=== PATIENT | female | born 2000 | race Caucasian/White ===

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

== ENCOUNTER 2020-09-18 08:18 | Day surgery (SDC) | payer OTHER ==
[~2020-09-18] VITALS: Ht 175.3 cm; Wt 147.0 kg
[~2020-09-18 08:18] MED LIST changes: +FERR325T3 PO; +NS 1,000 ML IV ONE
[2020-09-18] MEDS ORDERED: propofoL 200 MG/20 ML VIAL As Ordered ONE (10:04)
--- NOTE | 2020-09-18 10:04 | ROOR ---
Patient Name: Ezequiel Armas Procedure Date: 09/18/2020 9:46 AM Date of : 2000 Age: 20 Room: [facility] Gender: Female Note Status: Finalized Procedure: Total Colonoscopy to Cecum + ileoscopy + Bx Indications: Clinically significant diarrhea of unexplained origin, Generalized abdominal pain, Change in bowel habits Providers: Clifford Zhou MD Referring MD: CUCA THURMAN MD Requesting Provider: Medicines: Monitored Anesthesia Care Complications: No immediate complications. Procedure: Pre-Anesthesia Assessment: - The heart rate, respiratory rate, oxygen saturations, blood pressure, adequacy of pulmonary ventilation, and response to care were monitored throughout the procedure. The Colonoscope was introduced through the anus and advanced to the terminal ileum, with identification of the appendiceal orifice and IC valve. The colonoscopy was performed without difficulty. The patient tolerated the procedure well. The quality of the bowel preparation was excellent. Findings: The perianal and digital rectal examinations were normal. Non-bleeding internal hemorrhoids were found during retroflexion. The hemorrhoids were small and Grade I (internal hemorrhoids that do not prolapse). No other significant abnormalities were identified in a careful examination of the remainder of the colon. The terminal ileum appeared normal. Biopsies for histology were taken with a cold forceps from the ascending colon, transverse colon, descending colon and rectosigmoid colon for evaluation of microscopic colitis. The exam was otherwise without abnormality on direct and retroflexion views. Impression: - Non-bleeding internal hemorrhoids. - The examined portion of the ileum was normal. - The examination was otherwise normal on direct and retroflexion views. - Biopsies were taken with a cold forceps from the ascending colon, transverse colon, descending colon and rectosigmoid colon for evaluation of microscopic colitis. - The exam was otherwise normal to the cecum. Recommendation: - Patient has a contact number available for emergencies. The signs and symptoms of potential delayed complications were discussed with the patient. Return to normal activities tomorrow. Written discharge instructions were provided to the patient. - High fiber diet. - Discharge patient to home. - Continue present medications. - Await pathology results. - Telephone GI clinic for pathology results in 1 week. - Repeat colonoscopy at age 50 for screening purposes. - Return to referring physician. - The findings and recommendations were discussed with the patient. Procedure Code(s): --- Professional --- 11455, Colonoscopy, flexible; with biopsy, single or multiple Diagnosis Code(s): --- Professional --- K64.0, First degree hemorrhoids R19.7, Diarrhea, unspecified R10.84, Generalized abdominal pain R19.4, Change in bowel habit CPT copyright 2019 [employer]. All rights reserved. The codes documented in this report are preliminary and upon literacy education professor review may be revised to meet current compliance requirements. Clifford Zhou MD Clifford Zhou MD 09/18/2020 10:04:44 AM Electronically signed by Clifford Zhou MD Number of Addenda: 0 Note Initiated On: 09/18/2020 9:46 AM Estimated Blood Loss: Estimated blood loss: none.
[2020-09-18] MEDS ORDERED: LIDOCAINE 2% 100MG/5ML SDV (FOR ANES.) As Ordered ONE (10:06)
[2020-09-18 10:30] VITALS: BP 141/86
== END 2020-09-18 10:31 | disposition home or self-care (01) ==
LOC: M OPP 08:18
PROVIDERS: ATTEND Internal Medicine Gastroenterology
DX: K64.8 Other hemorrhoids (principal); R19.7 Diarrhea, unspecified; R10.84 Generalized abdominal pain; Z88.0 Allergy status to penicillin

== ENCOUNTER 2021-03-07 11:03 | Observation (INO) | payer OTHER ==
[~2021-03-07] VITALS: Ht 175.3 cm; Wt 144.2 kg
[~2021-03-07 11:03] MED LIST changes: -NS 1,000 ML IV ONE
[2021-03-07 12:16] LABS: BASO % 0.2 % (0.0-1.0); EOS # 0.2 10^3/uL (0.0-0.5); EOS % 1.5 % (0.0-3.0); HEMATOCRIT 36.4 % (36.0-47.0); HEMOGLOBIN 11.9 g/dl (12.0-15.5); LYMPH # 3.2 10^3/uL (1.5-5.0); LYMPH % 25.6 % (24.0-44.0); MEAN CORPUSCULAR HEMOGLOBIN 25.6 pg (27.0-33.0); MEAN CORPUSCULAR HGB CONC 32.7 g/dl (32.0-36.5); MEAN CORPUSCULAR VOLUME 78.4 fl (80.0-96.0); MONO # 0.5 10^3/uL (0.0-0.8); NEUTROPHILS # 8.5 10^3/uL (1.5-8.5); NEUTROPHILS % 68.4 % (36.0-66.0); PLATELET COUNT, AUTOMATED 337 10^3/uL (150-450); RED BLOOD COUNT 4.64 10^6/uL (4.00-5.40); WHITE BLOOD COUNT 12.4 10^3/uL (4.0-10.0)
[2021-03-07 12:52] LABS: BLOOD UREA NITROGEN 10 MG/DL (7-18); CARBON DIOXIDE LEVEL 20 MEQ/L (21-32); CHLORIDE LEVEL 104 MEQ/L (98-107); CREATININE FOR GFR 0.78 MG/DL (0.55-1.30); GLUCOSE, FASTING 93 MG/DL (70-100); POTASSIUM SERUM 3.9 MEQ/L (3.5-5.1); SODIUM LEVEL 134 MEQ/L (136-145)
[2021-03-07] MEDS ORDERED: NS 1,000 ML IV ONE (13:10)
--- NOTE | 2021-03-07 13:28 | REP ---
INDICATION: miscarriage actively started misoprostol last night COMPARISON: None. TECHNIQUE: Grayscale and color B-mode transabdominal 1st trimester obstetrical ultrasound. FINDINGS: Enlarged heterogeneous anteverted uterus measures 15.1 x 6.6 x 7.0 cm. The endometrial complex measures 25.5 mm thickness and echogenic material within the endocervical canal likely represents hemorrhagic debris. No definable gestational sac. Ovaries are not visualized. No pelvic free fluid. IMPRESSION: Heterogeneous presumed hemorrhagic debris in the endocervical canal without definable intrauterine . Findings likely represent spontaneous in progress. Correlation with serial HCG levels recommended. <Electronically signed by Luigi Sherman > 03/07/21 [id number]
[2021-03-07 13:52] LABS: HCG, SERUM QUANTITATIVE 15715 MIU/ML
[2021-03-07] MEDS ORDERED: MISO200T56 PO (14:03)
[2021-03-07] MEDS ORDERED: IBUP-1022 PO (14:03)
[2021-03-07] MEDS ORDERED: OXYC-1 PO (14:03)
[2021-03-07] MEDS ORDERED: ONDA4TAB6 PO (14:03)
[2021-03-07] MEDS ORDERED: ACET1TAB55 PO (14:03)
--- NOTE | 2021-03-07 14:13 | REP ---
INDICATION: stat per ob at bedside, active miscarrage COMPARISON: None. TECHNIQUE: Transvaginal 1st trimester obstetrical ultrasound. FINDINGS: Heterogeneous enlarged anteverted uterus measures 11.3 x 5.9 x 7.4 cm. The endometrial complex measures 24.6 mm thickness without discernible vascularity. Previously noted presumed hemorrhagic debris in the endocervical canal is no longer visible. Ovaries are not visualized. IMPRESSION: Heterogeneous anteverted uterus as described above. Previously noted hemorrhagic debris in the endocervical canal no longer visible. <Electronically signed by Luigi Sherman > 03/07/21 [id number]
[2021-03-07] MEDS ORDERED: OXYC-517 PO (14:39)
[2021-03-07] MEDS ORDERED: IBUP1TAB7 PO (14:39)
[2021-03-07] MEDS ORDERED: HOME MED LIST COMPLETE! XX SCH (14:40)
[2021-03-07] MEDS ORDERED: dexameTHASONE 4 MG/ML 1ML VIAL (J1100 PER 1MG) As Ordered ONE (15:46)
[2021-03-07] MEDS ORDERED: propofoL 200 MG/20 ML VIAL As Ordered ONE (15:46)
[2021-03-07] MEDS ORDERED: KETOROLAC 60MG 2ML VIAL As Ordered ONE (15:46)
[2021-03-07] MEDS ORDERED: ONDANSETRON 4MG/2ML VIAL As Ordered ONE (15:46)
[2021-03-07] MEDS ORDERED: MIDAZOLAM INJ 2MG/2ML VIAL (J2250 PER 1MG) As Ordered ONE (15:46)
[2021-03-07] MEDS ORDERED: fentaNYL 100 MCG/2 ML INJECTION (J3010) As Ordered ONE (15:46)
[2021-03-07] MEDS ORDERED: LIDOCAINE 2% 100MG/5ML SDV (FOR ANES.) As Ordered ONE (15:46)
[2021-03-07] MEDS ORDERED: DOXYCYCLINE HYCLATE 100MG/10ML VIAL As Ordered ONE (16:20)
[2021-03-07] MEDS ORDERED: LEVONORGESTREL 52MG (MIRENA) IUD As Ordered ONE (16:20)
[2021-03-07] MEDS ORDERED: ACETAMINOPHEN 1000MG 100ML IV BTL (OFIRMEV) (J0131 PER 10MG) As Ordered ONE (16:26)
[2021-03-07] MEDS ORDERED: METOCLOPRAMIDE INJ 10MG/2ML VIAL (J2765 PER 1) As Ordered ONE (16:48)
[2021-03-07] MEDS ORDERED: METHYLERGONOVINE MALEATE 0.2 MG/ML VIAL (J2210) As Ordered ONE (16:57)
[2021-03-07] MEDS ORDERED: ONDANSETRON 4MG/2ML VIAL IV PRN (17:35)
[2021-03-07] MEDS ORDERED: LR 1,000 ML IV SCH (17:35)
[2021-03-07] MEDS ORDERED: oxyCODONE 5MG TAB PO PRN (17:35)
[2021-03-07] MEDS ORDERED: HYDROMORPHONE HCL 0.5 MG/ 0.5 ML SYRINGE (J1170 PER 1) IV PRN (17:35)
[2021-03-07] MEDS ORDERED: fentaNYL 100 MCG/2 ML INJECTION (J3010) IV PRN (17:35)
--- NOTE | 2021-03-07 18:01 | ROOPDOC ---
[facility] Report Of Operation Report of Operation DATE OF PROCEDURE: 03/07/21 PREPROCEDURE DIAGNOSES: retained products of conception, missed POSTPROCEDURE DIAGNOSES: retained products of conception, missed , uterine hemorrhage PROCEDURE PERFORMED: ultrasound guided dilation and curettage, mirena IUD placement SURGEON: Amando Hicks DO ACADEMIC MANAGER: n/a ANESTHESIA: LMA ESTIMATED BLOOD LOSS: Approximately 1000 mL. COMPLICATIONS: uterine atony / hemorrhage REMARKS: none FINDINGS: after removal of visible cervical products of conception in the ER endometrial stripe remained 2.5cm and vaginal bleeding, although slower, persisted. Decision made to proceed with D+C. 12mm curette passed with good tissue return and curette had 360 deg cry but bleeding remained brisk. The bleeding slowed with bimanual massage, methergine, and cytotec. Transabdominal ultrasound revealed a thin endometrial stripe. The patient compensated well and was stable on transfer. SPECIMENS REMOVED: Products of conception. PROCEDURE NOTE: Ulttrasound in the emergency room revealed a 2.5cm endometrial stripe but on exam there were visible products of conception in the cervix. The patient reported symptoms of anemia, but she had an appropirate CBC and her vital signs were normal, Attempt was made for removal of the cervical products of conception given her heavy bleeding. Removal was successful and the bleeding slowed, repeat ultrasound revealed an unchanged appearance of the upper uterus. Given the persistent bleeding and unchanged uterine appearance decision was made to proceed with D+C. The risks, benefits and alternatives of the procedure were discussed and written consent obtained. She was taken to the OR and given doxycycline and tylenol pre-operative. She underwent anesthesia and was positioned in lithotomy with her arms out. The vagina and perineum were prepped and draped in a sterile fashion. A final time out was performed. The bladder was drained. A speculum was placed in the vagina and the anterior lip of the cervix grasped with a single tooth tenaculum. The cervix was visually dilated, a 12cm curette was introduced to the fundus and removed. It was then attached to suction and tested to the green zone. The curette was passed with good tissue return. A curette was used to palpate the uterine smalls and cry was appreciated 360 deg. Uterine bleeding although remained brisk. Methergine IM and cytotec FL were administered, uterine massage was performed. The uterus firmed and bleeding became scant. Transabdominal ultrasound revealed a thin endometrial stripe. A mirena IUD was then placed via the manufacturers instructions and the sgtrings cut to 4cm. Placement was confirmed via ultrasound. The tenaculum was removed and the puncture sites were hemostatic. The speculum was removed. The patient tolerated the procedure well. The sponge, lap, and needle counts were correct. She was transferred to recovery in stable condition. AMANDO HICKS DO Mar 07, 2021 18:01
[2021-03-07] MEDS: LR 1,000 ML IV SCH (18:35)
[2021-03-07 20:00] VITALS: BP 130/89
[2021-03-07] MEDS: DOCUSATE SODIUM 100MG CAPSULE PO SCH (20:58)
[2021-03-07 21:00] LABS: HEMATOCRIT 29.4 % (36.0-47.0); MEAN CORPUSCULAR HEMOGLOBIN 25.6 pg (27.0-33.0); MEAN CORPUSCULAR HGB CONC 32.3 g/dl (32.0-36.5); MEAN CORPUSCULAR VOLUME 79.2 fl (80.0-96.0); PLATELET COUNT, AUTOMATED 300 10^3/uL (150-450); RED BLOOD COUNT 3.71 10^6/uL (4.00-5.40); WHITE BLOOD COUNT 17.2 10^3/uL (4.0-10.0)
[2021-03-07 21:02] LABS: HEMOGLOBIN 9.5 g/dl (12.0-15.5)
[2021-03-08 00:01] VITALS: BP 118/75
[2021-03-08] MEDS: LR 1,000 ML IV SCH ×2 (00:48→09:40)
[2021-03-08 00:52] LABS: HEMATOCRIT 27.7 % (36.0-47.0); MEAN CORPUSCULAR HEMOGLOBIN 25.8 pg (27.0-33.0); MEAN CORPUSCULAR HGB CONC 32.5 g/dl (32.0-36.5); MEAN CORPUSCULAR VOLUME 79.4 fl (80.0-96.0); PLATELET COUNT, AUTOMATED 310 10^3/uL (150-450); RED BLOOD COUNT 3.49 10^6/uL (4.00-5.40); WHITE BLOOD COUNT 13.1 10^3/uL (4.0-10.0)
[2021-03-08 04:00] VITALS: BP 136/68
[2021-03-08 04:11] VITALS: BP 127/71
--- NOTE | 2021-03-08 07:00 | IPNPDOC ---
Text Note Date of Service The patient was seen on 03/08/21. NOTE Ms. Armas is a 20yo F that is POD 1 s/p suction D+C and mirena IUD placement for retained products of conception with persistent bleeding after cytotec administration for a missed c/b uterine atony with an EBL of 1000cc + per per report overflowing approx 9 maxi pads prior to coming to the ER. In the OR she received cytotec 1000mcg MI and Methergine IM. A few hours after her surgery she had a near syncopal episode while ambulating with an RN to the bathroom. She reports that she had a wave of nausea and still felt under the influence of the anesthetic, her vital signs were normal. A 500cc bolus was administered and a STAT CBC ordered with Hbg 9.5. After recovering she felt significantly better. A 4h repeat CBC had a hCG of 9.0. This morning she reports feeling "so much better." She denied n/v/d, cp, sob, sr, visual changes, abd pain, f/c, heavy vb, dc, urinary sx, weakness, dizziness, light headedness. She is tolerating PO, ambulating, urinating, and passing flatus without issue. She desires to go home. EXAM AAOx3, NAD no increased WOB non-tachycardic abd is obese, soft, non-tender LE non-tender normal affect and insight Ms. Armas is a 20yo F that is POD 1 s/p suction D+C and mirena IUD placement for retained products of conception with persistent bleeding after cytotec administration for a missed c/b uterine atony with an EBL of 1000cc + per per report overflowing approx 9 maxi pads prior to coming to the ER. In the OR she received cytotec 1000mcg MI and Methergine IM. A few hours after her surgery she had a near syncopal episode while ambulating with an RN to the bathroom. She reports that she had a wave of nausea and still felt under the influence of the anesthetic, her vital signs were normal. A 500cc bolus was administered and a STAT CBC ordered with Hbg 9.5. After recovering she felt significantly better. A 4h repeat CBC had a hCG of 9.0. This morning her vital signs remain normal. She has no symptoms of anemia and her Hbg has been stable. She is meeting all post-operative goals and desires to go home. PLAN - discharge to home after AM CBC results if stable - patient has post-op medications already from her initial SAB treatment - educated on return precautions (heavy bleeding, fever, significant pain, other concerning symptoms) - educated on string check in 1wk then monthly thereafter - follow up in clinic in 2 weeks Luisito La, I+O Luisito COURTNEY I+O Laboratory Tests 03/07/21 11:56 03/07/21 20:47 03/08/21 00:45 Vital Signs Date Time Temp Pulse Resp B/P (MAP) Pulse Ox O2 Delivery O2 Flow Rate FiO2 03/08/21 04:11 98.0 98 16 127/71 (89) 98 Room Air I&O- Last 24 Hours up to 6 AM 03/08/21 06:00 Intake Total 4000 ml Output Total 1100 ml Balance 2900 ml JOSE HICKS DO Mar 08, 2021 06:59
--- NOTE | 2021-03-08 07:03 | OBDS ---
[facility] Obstetrical Discharge Sum. Obstetrical Discharge Summary Date: Mar 08, 2021 A/P, Post Course List any complications Final diagnosis: missed , retained products of conception, uterine atony, hemorrhage Ms. Armas is a 20yo F that is post-operative day 1 after a suction D+C and mirena IUD placement for retained products of conception with persistent bleeding after cytotec administration for a missed c/b uterine atony with an EBL of 1000cc + per per report overflowing approx 9 maxi pads prior to coming to the ER. In the OR she received cytotec 1000mcg MA and Methergine IM. A few hours after her surgery she had a near syncopal episode while ambulating wit h an RN to the bathroom. She reports that she had a wave of nausea and still felt under the influence of the anesthetic, her vital signs were normal. A 500cc bolus was administered and a STAT CBC ordered with Hbg 9.5. After recovering she felt significantly better. A 4h repeat CBC had a hCG of 9.0. This morning her vital signs remain normal. She has no symptoms of anemia and her Hbg has been stable. She is meeting all post-operative goals and desires to go home. PLAN - discharge to home after AM CBC results if stable - patient has post-op medications already from her initial SAB treatment - educated on return precautions (heavy bleeding, fever, significant pain, other concerning symptoms) - educated on string check in 1wk then monthly thereafter - follow up in clinic in 2 weeks JOSE HICKS DO Mar 08, 2021 07:03
[2021-03-08] MEDS: DOCUSATE SODIUM 100MG CAPSULE PO SCH (09:00)
[2021-03-08 10:00] VITALS: BP 124/76
[2021-03-08 11:54] LABS: BASO % 0.2 % (0.0-1.0); EOS % 0.2 % (0.0-3.0); HEMATOCRIT 24.9 % (36.0-47.0); HEMOGLOBIN 8.2 g/dl (12.0-15.5); LYMPH # 2.6 10^3/uL (1.5-5.0); LYMPH % 22.3 % (24.0-44.0); MEAN CORPUSCULAR HEMOGLOBIN 25.7 pg (27.0-33.0); MEAN CORPUSCULAR HGB CONC 32.9 g/dl (32.0-36.5); MEAN CORPUSCULAR VOLUME 78.1 fl (80.0-96.0); MONO # 0.4 10^3/uL (0.0-0.8); MONO % 3.6 % (2.0-8.0); NEUTROPHILS # 8.6 10^3/uL (1.5-8.5); NEUTROPHILS % 73.1 % (36.0-66.0); PLATELET COUNT, AUTOMATED 328 10^3/uL (150-450); RED BLOOD COUNT 3.19 10^6/uL (4.00-5.40); WHITE BLOOD COUNT 11.8 10^3/uL (4.0-10.0)
[2021-03-08] MEDS ORDERED: IBUPROFEN 800 MG TAB PO SCH (22:00)
== END 2021-03-08 14:30 | disposition home or self-care (01) ==
LOC: M ED 11:03 → M SDC 14:23 → M MS5PR 14:24
PROVIDERS: ADMIT Obstetrics & Gynecology; ATTEND Obstetrics & Gynecology
DX: O73.1 Retained portions of placenta and membranes, without hemorrhage (principal); O02.1 Missed abortion; N99.61 Intraoperative hemorrhage and hematoma of a genitourinary system organ or structure complicating a genitourinary system procedure; Z30.430 Encounter for insertion of intrauterine contraceptive device; Z88.0 Allergy status to penicillin; Z79.899 Other long term (current) drug therapy; Z79.891 Long term (current) use of opiate analgesic
CPT/HCPCS: 36415; 58300; 59820; 76801; 76817; 80048; 84702; 85025; 85027; 86850; 86900; 86901; 86920; 88305; 96360; 96361; 99284; J0131; J1100; J2210; J2250; J2405; J2765; J3010; J7298; U0002

== ENCOUNTER 2021-03-09 11:07 | Emergency (ER) | payer OTHER ==
[~2021-03-09] VITALS: Ht 175.3 cm; Wt 145.4 kg
[2021-03-09] VITALS (7 sets, daily range): BP systolic 103–136; BP diastolic 49–67
[~2021-03-09 11:07] MED LIST changes: +ACET1TAB55 PO; +IBUP-1022 PO; +IBUP1TAB7 PO; +MISO200T56 PO; +ONDA4TAB6 PO; +OXYC-1 PO; +OXYC-517 PO
[2021-03-09 12:16] LABS: HEMATOCRIT 21.9 % (36.0-47.0); HEMOGLOBIN 7.1 g/dl (12.0-15.5); MEAN CORPUSCULAR HGB CONC 32.4 g/dl (32.0-36.5); MEAN CORPUSCULAR VOLUME 80.2 fl (80.0-96.0); PLATELET COUNT, AUTOMATED 279 10^3/uL (150-450); RED BLOOD COUNT 2.73 10^6/uL (4.00-5.40); WHITE BLOOD COUNT 9.2 10^3/uL (4.0-10.0)
[2021-03-09] MEDS ORDERED: MAALOX 30 ML SUSP *UDC PO ONE (15:00)
== END 2021-03-09 18:17 | disposition home or self-care (01) ==
LOC: M ED 11:07
DX: D64.9 Anemia, unspecified (principal); Z79.899 Other long term (current) drug therapy; Z79.891 Long term (current) use of opiate analgesic; Z88.0 Allergy status to penicillin; Z88.1 Allergy status to other antibiotic agents
CPT/HCPCS: 36430; 80047; 85027; 86850; 86900; 86901; 86920; 99285; P9016

== ENCOUNTER 2021-03-10 20:07 | Emergency (ER) | payer OTHER ==
[~2021-03-10] VITALS: Ht 175.3 cm; Wt 145.4 kg
[2021-03-10 20:09] VITALS: BP 166/105
[2021-03-10 21:02] LABS: BASO % 0.4 % (0.0-1.0); EOS # 0.2 10^3/uL (0.0-0.5); EOS % 1.6 % (0.0-3.0); HEMATOCRIT 29.5 % (36.0-47.0); LYMPH # 3.9 10^3/uL (1.5-5.0); LYMPH % 33.9 % (24.0-44.0); MEAN CORPUSCULAR HEMOGLOBIN 26.9 pg (27.0-33.0); MEAN CORPUSCULAR HGB CONC 32.9 g/dl (32.0-36.5); MEAN CORPUSCULAR VOLUME 81.9 fl (80.0-96.0); MONO # 0.5 10^3/uL (0.0-0.8); MONO % 4.2 % (2.0-8.0); NEUTROPHILS # 6.7 10^3/uL (1.5-8.5); NEUTROPHILS % 58.6 % (36.0-66.0); PLATELET COUNT, AUTOMATED 356 10^3/uL (150-450); WHITE BLOOD COUNT 11.4 10^3/uL (4.0-10.0)
[2021-03-10 21:03] LABS: HEMOGLOBIN 9.7 g/dl (12.0-15.5)
[2021-03-10 21:36] LABS: BLOOD UREA NITROGEN 15 MG/DL (7-18); CALCIUM LEVEL 8.5 MG/DL (8.5-10.1); CARBON DIOXIDE LEVEL 26 MEQ/L (21-32); CHLORIDE LEVEL 107 MEQ/L (98-107); CREATININE FOR GFR 0.82 MG/DL (0.55-1.30); GLUCOSE, FASTING 85 MG/DL (70-100); POTASSIUM SERUM 3.9 MEQ/L (3.5-5.1); SODIUM LEVEL 142 MEQ/L (136-145)
[2021-03-10 21:58] LABS: RSV AMPLIFICATION NEGATIVE (NEGATIVE)
--- NOTE | 2021-03-11 00:11 | REPVR ---
PROCEDURE INFORMATION: Exam: US , Transvaginal Exam date and time: 03/10/2021 9:26 PM Age: 20 years old Clinical indication: Pelvic pain; Prior surgery; Surgery date: 3-7 days post-operative; Surgery type: D and c 12 wks demise 03/07/2021. Iud placement after d and c; Additional info: Bleeding S/P d TECHNIQUE: Imaging protocol: Real-time transvaginal obstetrical ultrasound of the maternal pelvis with image documentation. Transvaginal imaging was used for better evaluation of the fetus, adnexa, and/or cervix. COMPARISON: 1. TRANSVAGINAL US 2021-03-07 13:47 2. Obs. Limited, [facility] 2019-01-21 12:57 FINDINGS: Limitations: Limited by body habitus and penetration by ultrasound. Gestation: Intrauterine gestation. MATERNAL: Uterus: Heterogeneous endometrium measuring 11 mm thickness. Intrauterine device appears appropriately positioned. Right adnexa: 3.8 x 1.6 x 2.2 cm right ovary with a 1.6 cm cyst/dominant follicle. Left adnexa: 2.1 x 1.6 x 1.9 cm left ovary with normal follicular architecture and blood flow. IMPRESSION: 1. Heterogeneous endometrium measuring 11 mm thickness. 2. Limited by body habitus and penetration by ultrasound. PROCEDURE INFORMATION: Exam: US Nonobstetric Pelvis; Complete Exam date and time: 03/10/2021 9:26 PM Age: 20 years old Clinical indication: Pelvic pain; Prior surgery; Surgery date: 3-7 days post-operative; Surgery type: D and c 12 wks demise 03/07/2021. Iud placement after d and c; Additional info: Bleeding S/P d TECHNIQUE: Imaging protocol: Transabdominal pelvic nonobstetric ultrasound. Complete exam. Real time ultrasound with image documentation. COMPARISON: 1. TRANSVAGINAL US 2021-03-07 13:47 2. Obs. Limited, [facility] 2019-01-21 12:57 FINDINGS: Limitations: Limited by body habitus and penetration by ultrasound. Uterus/cervix: Heterogeneous endometrium measuring 11 mm thickness. Intrauterine device appears appropriately positioned. Right adnexa: 3.8 x 1.6 x 2.2 cm right ovary with a 1.6 cm cyst/dominant follicle. Left adnexa: 2.1 x 1.6 x 1.9 cm left ovary with normal follicular architecture and blood flow. Intraperitoneal space: No intraperitoneal fluid. Urinary bladder: Normal. IMPRESSION: 1. Heterogeneous endometrium measuring 11 mm thickness. 2. Limited by body habitus and penetration by ultrasound. Electronically signed by: Samm Humphrey On 03/11/2021 00:10:49 AM
--- NOTE | 2021-03-12 06:38 | ED PDOC ---
Post-Departure Follow-Up pt LWBS. ob us faxed to [facility] for fu Doc Patterson MD Mar 12, 2021 06:38
== END 2021-03-10 23:04 | disposition left against medical advice (07) ==
LOC: M ED 20:07
DX: Z53.21 Procedure and treatment not carried out due to patient leaving prior to being seen by health care provider (principal)